=== PATIENT | female | born 1990 | race Two or more races ===

== ENCOUNTER 2021-04-06 20:40 | Emergency (ER) | payer BC ==
[2021-04-06] MEDS ORDERED: Sodium Chloride 0.9% 10 ML Syringe FLUSH PRN (21:08)
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
[2021-04-06] MEDS ORDERED: Albuterol 6.7 GM Inhaler INH ONE (22:23)
[2021-04-06] MEDS ORDERED: predniSONE 10 MG Tab PO ONE (22:27)
--- NOTE | 2021-04-07 07:16 | CR ---
Chest: 2 views of the chest were obtained. Comparison: No prior chest imaging is available. Heart size and mediastinum are normal. Lungs are clear with no acute parenchymal change. Bony structures are within normal limits. Impression: 1. Nothing acute is seen on 2 view chest x-ray. Diagnostic code #1
== END 2021-04-06 22:53 | disposition home or self-care (01) ==
LOC: JD.ED 20:40
DX: R07.89 Other chest pain (principal); R06.02 Shortness of breath; Z20.822 Contact with and (suspected) exposure to COVID-19
CPT/HCPCS: 36415; 71046; 80053; 84484; 85025; 85379; 87635; 93005; 94640; 99285; A9270; J7512; 93010; 99284; U0002

== ENCOUNTER 2022-05-07 20:25 | Emergency (ER) | payer BC ==
[2022-05-07] MEDS ORDERED: Ondansetron 4 MG Tab.DIS PO ONE (21:25)
[2022-05-07] MEDS ORDERED: Ketorolac 60 MG/2 ML SDV IM ONE (21:25)
[2022-05-07 21:46] LABS: ESTIMATED GFR 62 mL/min (>60)
== END 2022-05-07 23:05 | disposition home or self-care (01) ==
LOC: JD.ED 20:25
DX: M54.6 Pain in thoracic spine (principal); Z20.822 Contact with and (suspected) exposure to COVID-19
CPT/HCPCS: 36415; 80053; 81003; 83735; 85025; 86140; 87635; 96372; 99283; A9270; J1885; U0002

== ENCOUNTER 2022-05-20 21:49 | Emergency (ER) | payer BC ==
[2022-05-20 23:36] LABS: CORONAVIRUS COVID-19 NAA NEGATIVE (NEGATIVE)
[2022-05-21] MEDS ORDERED: diphenhydrAMINE 50 MG/ML SDV IVPUSH ONE (01:16)
[2022-05-21] MEDS ORDERED: Prochlorperazine 10 MG/2 ML SDV IVPUSH ONE (01:16)
[2022-05-21] MEDS ORDERED: Lactated Ringers 1,000 ML IV ONE (01:16)
== END 2022-05-21 04:04 | disposition home or self-care (01) ==
LOC: JD.ED 21:49
DX: R51.9 Headache, unspecified (principal); J02.9 Acute pharyngitis, unspecified; Z86.16 Personal history of COVID-19; Z20.822 Contact with and (suspected) exposure to COVID-19
CPT/HCPCS: 0240U; 87651; 96361; 96374; 96375; 99283; J0780; J1200; J7120; 81001; 87086; 87088; 87186; 87210; 87491; 87591; 87808

== ENCOUNTER 2022-05-28 02:32 | Emergency (ER) | payer BC ==
[2022-05-28] MEDS ORDERED: Naproxen 500 MG Tab PO ONE (05:47)
== END 2022-05-28 06:11 | disposition home or self-care (01) ==
LOC: JD.ED 02:32
DX: R07.81 Pleurodynia (principal); Z79.899 Other long term (current) drug therapy; Z86.16 Personal history of COVID-19
CPT/HCPCS: 71046; 93005; 99285; A9270